=== PATIENT | male | born 1970 | race Caucasian/White ===

== ENCOUNTER 2016-10-13 09:11 | Emergency (ER) | payer BC, OTHER ==
[2016-10-13 09:21] VITALS: BP 152/84; BMI 31.2
--- NOTE | 2016-10-13 09:54 | DR.EXTPAIN ---
HPI - Time seen Time seen: 09:35 - PCP Primary Care Physician: Pati COREY - Complaint/Symptoms Chief Complaint:: CUT LEFT HAND WITH POCKETKNIFE WHILE TRIMMING THE PLASTIC ON A BRUSHGUARD. - Source History Provided: Patient - Mode of arrival Mode of Arrival: Ambulatory - Timing Onset of Chief Complaint: 10/13/16 PMH - PMH Past Medical History: No Past Surgical History: Yes Surgical History: Ortho Surgery - Family History History of Family Medical Conditions: No - Social History Does patient currently use any type of tobacco product: Yes Have you used tobacco products in the last 12 months: Yes Type of Tobacco Use: Smokeless Does any household member use tobacco: No Alcohol Use: Occasionally Do you use any recreational Drugs:: No Lives With: Spouse Lives Where: Home - infectious screening In the last 2 months have you had wt loss of >10#?: NO Have you had fever, night sweats or hemotysis?: No Have you traveled outside the country in the last 6 months?: No Isolation: Standard ROS - Review of Systems Constitutional: No Symptoms Reported Eyes: No Symptoms Reported ENTM: No Symptoms Reported Respiratoy: No Symptoms Reported Cardiovascular: No Symptoms Reported Gastrointestinal/Abdominal: No Symptoms Reported Genitourinary: No Symptoms Reported Neurological: No Symptoms Reported Musculoskeletal: No Symptoms Reported Integumentary: No Symptoms Reported Hematologic/Lymphatic: No Symptoms Reported Endocrine: No Symptoms Reported Psychiatric: No Symptoms Reported All Other Systems: Reviewed and Negative PE - Vital Signs Vitals: Temperature 99.2 F Pulse Rate 85 Respiratory Rate 17 Blood Pressure 152/84 O2 Sat by Pulse Oximetry 97 - General Limitations: No Limitations General Appearance: Alert, In No Apparent Distress - Head Head Exam: Normal Inspection, Atraumatic - Eyes Eye exam: Normal Appearance, PERRL, EOMI - ENT ENT Exam: Normal Exam - Neck Neck Exam: Normal Inspection - Chest Chest Inspection: Normal Inspection - Respiratory Respiratory Exam: Normal Lung Sounds Bilat Respiratory Exam: Bilateral Clear to Auscultation - Cardiovascular Cardiovascular Exam: Regular Rate, Normal Rhythm - Abdominal Exam Abdominal Exam: Normal Inspection Abdominal Tenderness: negative: RUQ, RLQ, LUQ, LLQ, Epigastrium, Suprapubic, Diffuse, Mild, Moderate, Severe, Other - Extremities Extremities Exam: Normal Inspection - Upper Extremities Shoulder Exam: Normal Inspection Arm Exam: Normal Inspection, Full ROM Elbow Exam: Normal Inspection Forearm Exam: Normal Inspection Hand Exam: Laceration (left hand proximal 4th MPJ 3cm laceration) Neuromotor Exam: Normal Exam Neurosensory Exam: Normal Exam Hand Tendon Exam: Flexor Digitorium Profundus (Location) Upper Ext. Vascular Exam: Capillary Refill - Lower Extremities Hip/Pelvis Exam: Normal Inspection Upper Leg Exam: Normal Inspection Knee Exam: Normal Inspection Lower Leg Exam: Normal Inspection Ankle Exam: Normal Inspection Foot/Toe Exam: Normal Inspection Neurovascular/Tendon Exam: Normal Capillary Refill Gait Exam: Observed and Normal - Psychiatric Psychiatric Exam: Normal Affect, Normal Mood - Skin Skin Exam: Warm, Dry. negative: Intact (except at laceration site of left hand 4th digit proxmially) Type of Lesion: Laceration (4th digit left hand proximally) Procedures - Laceration/Wound Repair Left Hand Wound Length (cm): 3 Wound's Depth, Shape: Superficial, Linear Wound Explored: clean Betadine Prep?: Yes Anesthesia: 1% Lidocaine (10) Wound Debrided: minimal Wound Repaired With: sutures Suture Size/Type: 4:0, [place] Number of Sutures: 7 Layer Closure?: No Sterile Dressing Applied?: Yes Splint Applied?: Yes Type of Splint Applied: hand - Splinting Pre-Made Type: metal - Diagnosis Discharge Problem: Finger laceration Qualifiers: Encounter type: initial encounter Qualified Code(s): S61.219A - Laceration without foreign body of unspecified finger without damage to nail, initial encounter - Discharge Plan Condition: Stable - Follow ups/Referrals Follow ups/Referrals: SEA COREY [Primary Care Provider] - 3 days - Instructions
[2016-10-13] MEDS ORDERED: BACITRACIN ZINC ONE (09:57)
[2016-10-13] MEDS ORDERED: ADACEL TDaP IM ONE ×2 (09:59→10:04)
== END 2016-10-13 10:17 | disposition home or self-care (01) ==
LOC: ER 09:11
PROC: 0XQK0ZZ Repair Left Hand, Open Approach (ICD-10-PCS; principal; 2016-10-13)
DX: S61.219A Laceration without foreign body of unspecified finger without damage to nail, initial encounter (principal); W26.0XXA Contact with knife, initial encounter; Y92.9 Unspecified place or not applicable
CPT/HCPCS: 12002; 90471; 99000; 99282